=== PATIENT | male | born 1995 | race Two or more races ===

== ENCOUNTER 2021-01-29 07:23 | Emergency (ER) | payer SELFPAY ==
[~2021-01-29] VITALS: Ht 180.3 cm; Wt 62.0 kg
[~2021-01-29 07:23] MED LIST: OMEP-110 PO; ONDA4TAB13 PO
[2021-01-29] MEDS ORDERED: PROCHLORPERAZINE 5 MG/ML, 2ML IVPush ONE (07:30)
[2021-01-29] MEDS ORDERED: SODIUM CHLORIDE FLUSH 10ML SYR IVF ONE (07:30)
[2021-01-29] MEDS ORDERED: SODIUM CHLORIDE 0.9% 1,000ML IVBOLUS ONE (07:30)
[2021-01-29] MEDS ORDERED: PROCHLORPERAZINE 5 MG/ML, 2ML ONE (07:38)
[2021-01-29 07:49] LABS: BASOPHILS % (AUTO) 1 % (0-1); EOSINOPHILS % (AUTO) 1 % (1-7); LYMPHOCYTES % (AUTO) 17 % (22-44); MEAN CORPUSCULAR HEMOGLOBIN 29.4 pg (27.5-34.5); MEAN PLATELET VOLUME 8.1 fL (7.4-10.4); MONOCYTES % (AUTO) 5 % (2-9); NEUTROPHILS % (AUTO) 77 % (42-75); PLATELET COUNT 233 x10^3/uL (130-400); RED BLOOD COUNT 5.41 x10^6/uL (4.38-5.82); RED CELL DISTRIBUTION WIDTH 12.4 % (9.4-14.8)
[2021-01-29 07:50] LABS: MD NO
[2021-01-29 07:58] LABS: ALANINE AMINOTRANSFERASE 37 U/L (12-78); ALBUMIN 4.5 g/dL (3.4-5.0); ANION GAP 9 mmol/L (5-15); CALCIUM 8.6 mg/dL (8.5-10.1); CHLORIDE 108 mmol/L (98-107); CREATININE 0.82 mg/dL (0.7-1.3)
[2021-01-29 08:00] LABS: ALKALINE PHOSPHATASE 105 U/L (45-117); BILIRUBIN,TOTAL 1.9 mg/dL (0.2-1.0); TOTAL PROTEIN 7.8 g/dL (6.4-8.2)
[2021-01-29 08:16] VITALS: BP 110/61
--- NOTE | 2021-01-29 08:16 | NUR ---
PT STATES SINCE MEDICATED NO PAIN AND RESTING WITH EYES CLOSED WHILE FLUIDS INFUSE.
== END 2021-01-29 09:03 | disposition home or self-care (01) ==
LOC: ED 08:50
DX: R10.33 Periumbilical pain (principal); R11.2 Nausea with vomiting, unspecified
CPT/HCPCS: 36415; 80053; 83690; 85025; 96361; 96374; 99283; J0780; J7030

== ENCOUNTER 2021-02-02 07:28 | Emergency (ER) | payer SELFPAY ==
--- NOTE | 2021-02-02 08:02 | NUR ---
NIL X1
--- NOTE | 2021-02-02 08:07 | NUR ---
NIL X 2
--- NOTE | 2021-02-02 08:29 | NUR ---
NIL X3V 3. REMOVED FROM SYSTEM PER PROTOCOL
== END 2021-02-02 08:31 | disposition left against medical advice (07) ==
LOC: ED 08:25
DX: R11.2 Nausea with vomiting, unspecified (principal); Z53.21 Procedure and treatment not carried out due to patient leaving prior to being seen by health care provider

== ENCOUNTER 2021-02-05 05:27 | Emergency (ER) | payer SELFPAY ==
[~2021-02-05] VITALS: Ht 180.3 cm; Wt 60.0 kg
[2021-02-05] MEDS ORDERED: ONDANSETRON 2MG/ML, 2ML ONE (05:59)
[2021-02-05] MEDS ORDERED: MAALOX/HYOSCYAMINE/LIDOCAINE 45 ML BTL ONE (05:59)
[2021-02-05] MEDS ORDERED: SODIUM CHLORIDE 0.9% 1,000ML IVBOLUS ONE (06:00)
[2021-02-05] MEDS ORDERED: ONDANSETRON 2MG/ML, 2ML IVPush ONE (06:00)
[2021-02-05] MEDS ORDERED: FAMOTIDINE 20 MG/2 ML IVPush ONE (06:00)
[2021-02-05] MEDS ORDERED: MAALOX/HYOSCYAMINE/LIDOCAINE 45 ML BTL PO ONE (06:00)
[2021-02-05] MEDS ORDERED: LORazepam 2 MG/ML, 1ML IVPush ONE (06:00)
[2021-02-05] MEDS ORDERED: FAMOTIDINE 20 MG/2 ML ONE (06:00)
[2021-02-05] MEDS ORDERED: LORazepam 2 MG/ML, 1ML ONE (06:00)
--- NOTE | 2021-02-05 06:10 | NUR ---
PT BIB [facility] C/O SEVERE ABDOMINAL PAIN. PT SHAKING AND SAYS ITS BECAUSE OF THE PAIN. PT WITH A 20G PIV TO RIGHT FOREARM. DOESN'T SHAKE WHEN STAFF NOT IN THE ROOM. MD TO BEDSIDE AND EVALED, AND ORDERS RECEIVED.
--- NOTE | 2021-02-05 06:14 | NUR ---
CHEMICAL RESEARCH TECHNICIAN TO BEDSIDE TO COMPLETE ULTRASOUND OF THE ABDOMEN. FURNITURE POLISHER FOLLOWED AND SADIE BLOOD.
--- NOTE | 2021-02-05 06:32 | NUR ---
PT UP TO COMMODE TO STOOL AND PROVIDE URINE SAMPLE.
[2021-02-05 06:33] LABS: ALANINE AMINOTRANSFERASE 25 U/L (12-78); ALBUMIN 3.9 g/dL (3.4-5.0); ANION GAP 6 mmol/L (5-15); CALCIUM 8.3 mg/dL (8.5-10.1); CHLORIDE 113 mmol/L (98-107); CREATININE 0.67 mg/dL (0.7-1.3)
[2021-02-05 06:35] LABS: ALKALINE PHOSPHATASE 95 U/L (45-117); BILIRUBIN,TOTAL 1.6 mg/dL (0.2-1.0)
--- NOTE | 2021-02-05 06:48 | NUR ---
REPORT TO GAVIOTA HEAD.
--- NOTE | 2021-02-05 06:48 | NUR ---
REPORT RECEIVED FROM MAURICIO HEAD.
[2021-02-05] MEDS ORDERED: PROMETHAZINE 25 MG/ML, 1ML ONE (06:58)
[2021-02-05] MEDS ORDERED: PROMETHAZINE 25 MG/ML, 1ML IM ONE (07:00)
[2021-02-05 07:06] LABS: BASOPHILS % (AUTO) 1 % (0-1); EOSINOPHILS % (AUTO) 0 % (1-7); LYMPHOCYTES % (AUTO) 18 % (22-44); MEAN CORPUSCULAR HEMOGLOBIN 29.2 pg (27.5-34.5); MEAN CORPUSCULAR HGB CONC 33.7 g/dL (33.2-36.2); MEAN PLATELET VOLUME 7.8 fL (7.4-10.4); MONOCYTES % (AUTO) 6 % (2-9); NEUTROPHILS % (AUTO) 75 % (42-75); PLATELET COUNT 226 x10^3/uL (130-400); RED BLOOD COUNT 5.15 x10^6/uL (4.38-5.82); RED CELL DISTRIBUTION WIDTH 12.5 % (9.4-14.8)
[2021-02-05 07:11] LABS: MD NO
[2021-02-05 07:11] LABS: MICROSCOPIC INDICATED
[2021-02-05 08:02] VITALS: BP 105/46
--- NOTE | 2021-02-05 08:03 | NUR ---
Patient given discharge instructions and prescription and they have confirmed that they understand the instructions. Patient stable and ambulatory with steady gait from ED to private vehicle.
== END 2021-02-05 08:03 | disposition home or self-care (01) ==
LOC: ED 05:32
DX: K29.50 Unspecified chronic gastritis without bleeding (principal); R10.13 Epigastric pain; R11.2 Nausea with vomiting, unspecified
CPT/HCPCS: 36415; 76700; 80053; 81001; 83690; 85025; 96361; 96372; 96374; 96375; 99285; J2060; J2405; J2550; J7030

== ENCOUNTER 2021-02-08 06:48 | Emergency (ER) | payer SELFPAY ==
[~2021-02-08] VITALS: Ht 180.3 cm; Wt 60.0 kg
[2021-02-08 06:50] VITALS: BP 117/87
[2021-02-08] MEDS ORDERED: ONDANSETRON 2MG/ML, 2ML ONE (07:28)
[2021-02-08] MEDS ORDERED: HALOPERIDOL 5 MG/ML ONE (07:28)
[2021-02-08] MEDS ORDERED: SODIUM CHLORIDE 0.9% 1,000ML IVBOLUS ONE ×2 (07:30→09:30)
[2021-02-08] MEDS ORDERED: HALOPERIDOL 5 MG/ML IM PRN (07:30)
[2021-02-08] MEDS ORDERED: ONDANSETRON 2MG/ML, 2ML IVPush ONE (07:30)
[2021-02-08 07:37] LABS: BASOPHILS % (AUTO) 1 % (0-1); EOSINOPHILS % (AUTO) 1 % (1-7); LYMPHOCYTES % (AUTO) 19 % (22-44); MEAN CORPUSCULAR HEMOGLOBIN 29.7 pg (27.5-34.5); MEAN CORPUSCULAR HGB CONC 34.2 g/dL (33.2-36.2); MEAN PLATELET VOLUME 8.1 fL (7.4-10.4); MONOCYTES % (AUTO) 5 % (2-9); NEUTROPHILS % (AUTO) 75 % (42-75); PLATELET COUNT 254 x10^3/uL (130-400); RED BLOOD COUNT 5.61 x10^6/uL (4.38-5.82); RED CELL DISTRIBUTION WIDTH 12.6 % (9.4-14.8)
--- NOTE | 2021-02-08 07:49 | NUR ---
PT SHAKING LEGS AND ABDOMEN AND TENSING UP, YELLING OUT IN PAIN. PT HAS EMESIS BAG OF BOUT 100CC WATERY EMESIS. PT MEDICATED FOR AGITATION AND NAUSEA. PT VITALS STABLE. WILL CONTINUE TO MONITOR.
[2021-02-08 07:50] LABS: ALANINE AMINOTRANSFERASE 31 U/L (12-78); ALBUMIN 4.8 g/dL (3.4-5.0); ANION GAP 9 mmol/L (5-15); CALCIUM 9.5 mg/dL (8.5-10.1); CHLORIDE 109 mmol/L (98-107); CREATININE 0.98 mg/dL (0.7-1.3)
[2021-02-08 07:52] LABS: ALKALINE PHOSPHATASE 114 U/L (45-117); BILIRUBIN,TOTAL 1.1 mg/dL (0.2-1.0); TOTAL PROTEIN 8.2 g/dL (6.4-8.2)
--- NOTE | 2021-02-08 08:21 | NUR ---
PT RESTING IN BED CALMLY AFTER MISSILE TRACKING TECHNICIAN. PT REMOVING MONITORS. ASKED PT WHY HE IS DOING THIS, PT STATED, "I DON'T WANT IT ON". PT INFORMED HE WILL BE GOING TO CT SHORTLY. PT CONFIRMED.
--- NOTE | 2021-02-08 08:28 | NUR ---
PT GOING TO CT
--- NOTE | 2021-02-08 08:40 | NUR ---
PT UP AMBULATING IN HALLWAY STEADILY. PT RESTING CALMLY IN BED AT THIS TIME. AWAITING CTA READ.
[2021-02-08] MEDS ORDERED: OMNIPAQUE 350 MG/ML, 100ML BOTTLE ONE (08:52)
--- NOTE | 2021-02-08 09:30 | NUR ---
TASK RN NOTE: PT AMBULATES WELL TO BATHROOM AND BACK TO BED. NAD NOTED AT THIS TIME. UA LABELLED AND SENT TO LAB. MONITORING DEVICES REATTACHED.
[2021-02-08 09:53] LABS: MICROSCOPIC AUTO
== END 2021-02-08 10:16 | disposition home or self-care (01) ==
LOC: ED 07:08
DX: R10.84 Generalized abdominal pain (principal); R11.2 Nausea with vomiting, unspecified
CPT/HCPCS: 36415; 74174; 80053; 81001; 83605; 83690; 85025; 96361; 96372; 96374; 99285; J1630; J2405; J7030; Q9967

== ENCOUNTER 2021-02-12 16:02 | Emergency (ER) | payer SELFPAY ==
[~2021-02-12] VITALS: Ht 172.7 cm; Wt 66.5 kg
[2021-02-12 16:29] VITALS: BP 114/72
[2021-02-12] MEDS ORDERED: SODIUM CHLORIDE 0.9% 1,000ML IVBOLUS ONE (17:00)
[2021-02-12] MEDS ORDERED: FAMOTIDINE 20 MG/2 ML IVPush ONE (17:00)
[2021-02-12] MEDS ORDERED: ONDANSETRON 2MG/ML, 2ML IVPush ONE (17:00)
[2021-02-12] MEDS ORDERED: SODIUM CHLORIDE FLUSH 10ML SYR IVF ONE (17:00)
--- NOTE | 2021-02-12 17:37 | NUR ---
Z from lab called patient 5 seperate times to attempt lab draw. No answer from patient.
--- NOTE | 2021-02-12 18:43 | NUR ---
PATIENT LEFT WITHOUT BEING SEEN BY PROVIDER.
== END 2021-02-12 18:42 | disposition left against medical advice (07) ==
LOC: ED 16:45
DX: R11.10 Vomiting, unspecified (principal)
CPT/HCPCS: 99281

== ENCOUNTER 2021-02-13 06:06 | Emergency (ER) | payer SELFPAY ==
[~2021-02-13] VITALS: Ht 180.3 cm; Wt 59.1 kg
[2021-02-13 06:07] VITALS: BP 114/75
--- NOTE | 2021-02-13 06:12 | NUR ---
bib ems for n/v and ab pain for a week or so and worse the last 3 hours. 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 erp at bedside, pt on coninuous pulse ox and bp cuff
[2021-02-13] MEDS ORDERED: HALOPERIDOL 5 MG/ML ONE (06:25)
[2021-02-13] MEDS ORDERED: HALOPERIDOL 5 MG/ML IM ONE (06:30)
--- NOTE | 2021-02-13 06:57 | NUR ---
report given to jose guadalupe obrien
== END 2021-02-13 07:39 | disposition home or self-care (01) ==
LOC: ED 07:33
DX: G89.29 Other chronic pain (principal); R10.84 Generalized abdominal pain; R11.2 Nausea with vomiting, unspecified
CPT/HCPCS: 96372; 99283; J1630

== ENCOUNTER 2021-04-29 04:50 | Emergency (ER) | payer SELFPAY ==
[~2021-04-29] VITALS: Ht 176.5 cm; Wt 67.2 kg
--- NOTE | 2021-04-29 05:21 | NUR ---
pt endorses periumbilical/epigastric abd pain, denies any aggravating factors. States hx of same, was dx w/ cannabis induced hyperemesis and was told pain was related to cannabanoid use. States he has not had any cannabis in x2 months and has made diet modifications. Pt endorses inability to hold anything down, frequent vomiting episodes, last vomiting episode 3am. Also endorses loose stools. Denies any complaints. No urgency, burning, frequency. Pt denies any etoh/illicit drug use. Pt denies any referred chest pain, sob, flank pain, upper back pain. Pt speaking in full sentences, cooperative with exam, alert and oriented x4 able to make needs known.
[2021-04-29] MEDS ORDERED: MORPHINE SULFATE 4 MG/ML, 1ML ONE ×2 (05:24→07:59)
[2021-04-29] MEDS ORDERED: ONDANSETRON 2MG/ML, 2ML ONE (05:24)
[2021-04-29] MEDS ORDERED: SODIUM CHLORIDE 0.9% 1,000 ML IV ONE (05:30)
[2021-04-29] MEDS ORDERED: MORPHINE SULFATE 4 MG/ML, 1ML IVPush PRN (05:30)
[2021-04-29] MEDS ORDERED: ONDANSETRON 2MG/ML, 2ML IVPush ONE (05:30)
[2021-04-29] MEDS ORDERED: SODIUM CHLORIDE 0.9% 1,000ML IVBOLUS ONE (05:30)
[2021-04-29] MEDS ORDERED: SODIUM CHLORIDE FLUSH 10ML SYR IVF ONE (05:30)
--- NOTE | 2021-04-29 05:42 | NUR ---
US at bedside, pt attempted to provide urine specimen, unable to do so at this time. IVF running, will continue to encourage pt to void.
[2021-04-29 05:50] LABS: BASOPHILS % (AUTO) 0 % (0-1); EOSINOPHILS % (AUTO) 1 % (1-7); LYMPHOCYTES % (AUTO) 23 % (22-44); MEAN CORPUSCULAR HEMOGLOBIN 29.5 pg (27.5-34.5); MEAN CORPUSCULAR HGB CONC 34.5 g/dL (33.2-36.2); MEAN PLATELET VOLUME 8.2 fL (7.4-10.4); MONOCYTES % (AUTO) 7 % (2-9); NEUTROPHILS % (AUTO) 69 % (42-75); PLATELET COUNT 227 x10^3/uL (130-400); RED BLOOD COUNT 5.58 x10^6/uL (4.38-5.82); RED CELL DISTRIBUTION WIDTH 12.8 % (9.4-14.8)
[2021-04-29 05:57] LABS: ALANINE AMINOTRANSFERASE 29 U/L (12-78); ALBUMIN 4.4 g/dL (3.4-5.0); ANION GAP 6 mmol/L (5-15); CALCIUM 8.9 mg/dL (8.5-10.1); CHLORIDE 109 mmol/L (98-107); CREATININE 0.89 mg/dL (0.7-1.3)
[2021-04-29 05:59] LABS: ALKALINE PHOSPHATASE 103 U/L (45-117); BILIRUBIN,TOTAL 2.6 mg/dL (0.2-1.0); TOTAL PROTEIN 7.8 g/dL (6.4-8.2)
--- NOTE | 2021-04-29 06:57 | NUR ---
Report given to SONIDO Jay no further questions.
[2021-04-29 07:00] LABS: MICROSCOPIC INDICATED
--- NOTE | 2021-04-29 07:02 | NUR ---
BEDSIDE REPORT TAKEN FROM HEIDI HEAD
[2021-04-29 07:16] VITALS: BP 104/60
--- NOTE | 2021-04-29 07:16 | NUR ---
pt resting in bed, resps even and unlabored, vss, nadn. PO challenge tolerated well.
[2021-04-29] MEDS ORDERED: MAALOX/HYOSCYAMINE/LIDOCAINE 45 ML BTL ONE (07:59)
[2021-04-29] MEDS ORDERED: MAALOX/HYOSCYAMINE/LIDOCAINE 45 ML BTL PO ONE (08:00)
--- NOTE | 2021-04-29 08:30 | NUR ---
pt educated on discharge, prescription for Zofran, follow-up, and return criteria, verbalized understanding. pt a&o, resps even and unlabored, vss, nadn. ambulatory to dc with steady gait.
== END 2021-04-29 08:52 | disposition home or self-care (01) ==
LOC: ED 06:09
DX: R11.2 Nausea with vomiting, unspecified (principal); E86.0 Dehydration; R10.13 Epigastric pain; R19.7 Diarrhea, unspecified
CPT/HCPCS: 36415; 76700; 80053; 81001; 83690; 85025; 96361; 96374; 96375; 99284; J2270; J2405; J7030

== ENCOUNTER 2021-04-30 06:49 | Emergency (ER) | payer SELFPAY ==
[~2021-04-30] VITALS: Ht 177.8 cm; Wt 65.0 kg
--- NOTE | 2021-04-30 07:06 | NUR ---
Very dramatic presentation at triage, moaning and thrashing about pushing himself in hospital wc. Dry heaving at triage, hyperventilating. Difficult to obtain accurate vitals.
--- NOTE | 2021-04-30 07:17 | NUR ---
DR ALVAREZ AT BEDSIDE, PT ASSESSMENT, POC DISCUSSED AND QUESTIONS ANSWERED. BP AND SP02 MONITORS PLACED, PIV EST AND LABS DRAWN. PT SEEN 04/29 FOR SAME, STATES HE ATE FINE LAST NIGHT BUT WOKE THIS AM AT 0600 WITH ABD PAIN, STATES HE FELT A "POP". CALL LIGHT W/I REACH VSS.
[2021-04-30] MEDS ORDERED: ONDANSETRON 2MG/ML, 2ML ONE (07:24)
[2021-04-30] MEDS ORDERED: HYDROmorphone 1 MG/ML, 1ML INJ ONE (07:24)
[2021-04-30] MEDS ORDERED: SODIUM CHLORIDE 0.9% 1,000 ML IV ONE (07:30)
[2021-04-30] MEDS ORDERED: ONDANSETRON 2MG/ML, 2ML IVPush ONE (07:30)
[2021-04-30] MEDS ORDERED: SODIUM CHLORIDE 0.9% 1,000ML IVBOLUS ONE (07:30)
[2021-04-30] MEDS ORDERED: SODIUM CHLORIDE FLUSH 10ML SYR IVF ONE (07:30)
[2021-04-30] MEDS ORDERED: HYDROmorphone 1 MG/ML, 1ML INJ IV ONE (07:30)
--- NOTE | 2021-04-30 07:40 | NUR ---
PT MED NOTED. CALL LIGHT W/I REACH. PT AWARE OF NEED TO PROVIDE URINE SAMPLE AND URINAL AT BEDSIDE.
[2021-04-30 07:57] LABS: BASOPHILS % (AUTO) 0 % (0-1); EOSINOPHILS % (AUTO) 1 % (1-7); LYMPHOCYTES % (AUTO) 29 % (22-44); MEAN CORPUSCULAR HEMOGLOBIN 29.6 pg (27.5-34.5); MEAN CORPUSCULAR HGB CONC 34.5 g/dL (33.2-36.2); MEAN PLATELET VOLUME 8.5 fL (7.4-10.4); MONOCYTES % (AUTO) 7 % (2-9); NEUTROPHILS % (AUTO) 63 % (42-75); PLATELET COUNT 264 x10^3/uL (130-400); RED BLOOD COUNT 5.65 x10^6/uL (4.38-5.82); RED CELL DISTRIBUTION WIDTH 12.7 % (9.4-14.8)
[2021-04-30 08:09] LABS: ALANINE AMINOTRANSFERASE 30 U/L (12-78); ALBUMIN 4.6 g/dL (3.4-5.0); ANION GAP 8 mmol/L (5-15); CHLORIDE 109 mmol/L (98-107); CREATININE 0.94 mg/dL (0.7-1.3)
[2021-04-30 08:11] LABS: ALKALINE PHOSPHATASE 105 U/L (45-117); BILIRUBIN,TOTAL 3.3 mg/dL (0.2-1.0); CALCIUM 9.2 mg/dL (8.5-10.1)
[2021-04-30] MEDS ORDERED: OMNIPAQUE 350 MG/ML, 100ML BOTTLE ONE (08:34)
--- NOTE | 2021-04-30 08:39 | NUR ---
VSS, PAIN NOW 5/10 AND PT APPEARS MUCH MORE RELAXED, WATCHING TV AND TEXTING ON PHONE. IVF BOLUS COMPLETED AND NS INFUSING AT 250ML/HR. URINE COLLECTED AND SENT TO LAB. CALL LIGHT W/I REACH
[2021-04-30 08:58] LABS: AMPHETAMINE SCREEN, URINE Negative (Negative); BARBITURATE SCREEN, URINE Negative (Negative); BENZODIAZEPINE SCREEN, URINE Negative (Negative); CANNABINOID SCREEN, URINE Positive (Negative); COCAINE SCREEN, URINE Negative (Negative); METHADONE SCREEN, URINE Negative (Negative); OPIATE SCREEN, URINE Positive (Negative)
[2021-04-30 08:59] LABS: MICROSCOPIC INDICATED
[2021-04-30 09:30] VITALS: BP 100/53
[2021-04-30] MEDS ORDERED: HALOPERIDOL 5 MG/ML IV ONE (09:30)
[2021-04-30] MEDS ORDERED: HALOPERIDOL 5 MG/ML ONE (09:34)
--- NOTE | 2021-04-30 10:49 | NUR ---
PT LEFT WITHOUT DC INSTRUCTIONS. IV WAS DC'D BY FINANCIAL ANALYST INTERN STUDENT
== END 2021-04-30 10:52 | disposition home or self-care (01) ==
LOC: ED 08:08
DX: R10.84 Generalized abdominal pain (principal); R11.2 Nausea with vomiting, unspecified; R00.0 Tachycardia, unspecified
CPT/HCPCS: 36415; 71045; 74177; 80053; 80307; 81001; 83605; 83690; 85025; 96361; 96374; 96375; 99285; J1170; J1630; J2405; J7030; Q9967

== ENCOUNTER 2021-06-21 05:30 | Emergency (ER) | payer OTHER ==
[~2021-06-21] VITALS: Ht 177.8 cm; Wt 68.4 kg
[2021-06-21 05:33] VITALS: BP 116/64
--- NOTE | 2021-06-21 07:54 | NUR ---
NA X 1
--- NOTE | 2021-06-21 08:01 | NUR ---
ONEL RN: CALLED FROM LOBBY, NO ANSWER
--- NOTE | 2021-06-21 08:09 | NUR ---
ONEL RN: CALLED FROM LOBBY, NO ANSWER
== END 2021-06-21 08:10 ==
LOC: ED 06:09
DX: M54.9 Dorsalgia, unspecified (principal); Z53.21 Procedure and treatment not carried out due to patient leaving prior to being seen by health care provider

== ENCOUNTER 2021-06-22 06:26 | Emergency (ER) | payer OTHER ==
[~2021-06-22] VITALS: Ht 177.8 cm; Wt 67.7 kg
--- NOTE | 2021-06-22 06:47 | NUR ---
PT C/O OF PERIUMBILICAL ABD PAIN, N/V/D FOR LAST 5 DAYS PT REPORTS THIS HAS HAPPENED A FEW MONTHS AGO ERMD AT BEDSIDE FOR EVAL ATTACHED TO MONITORS. VSS. NADN. BED IN LOW, RAILS ENGAGED, CALL LIGHT ON LAP.
--- NOTE | 2021-06-22 06:53 | NUR ---
ASSUMED CARE FROM SONIDO ELLIS. PT RESTING IN [facility], MONITORING IN PLACE, JOSE AT THIS TIME, PER PT NO NEEDS, WARM BLANKET PROVIDED, [id number].
[2021-06-22] MEDS ORDERED: SODIUM CHLORIDE FLUSH 10ML SYR IVF ONE (07:00)
[2021-06-22] MEDS ORDERED: SODIUM CHLORIDE 0.9% 1,000ML IVBOLUS ONE (07:00)
[2021-06-22] MEDS ORDERED: ONDANSETRON 2MG/ML, 2ML IVPush ONE (07:00)
[2021-06-22] MEDS ORDERED: MORPHINE SULFATE 4 MG/ML, 1ML IVPush PRN (07:00)
[2021-06-22] MEDS ORDERED: ONDANSETRON 2MG/ML, 2ML ONE (07:01)
[2021-06-22] MEDS ORDERED: MORPHINE SULFATE 4 MG/ML, 1ML ONE (07:01)
[2021-06-22 07:22] LABS: BASOPHILS % (AUTO) 1 % (0-1); EOSINOPHILS % (AUTO) 1 % (1-7); LYMPHOCYTES % (AUTO) 27 % (22-44); MEAN CORPUSCULAR HEMOGLOBIN 29.2 pg (27.5-34.5); MEAN PLATELET VOLUME 7.6 fL (7.4-10.4); MONOCYTES % (AUTO) 7 % (2-9); NEUTROPHILS % (AUTO) 65 % (42-75); PLATELET COUNT 229 x10^3/uL (130-400); RED BLOOD COUNT 5.38 x10^6/uL (4.38-5.82); RED CELL DISTRIBUTION WIDTH 12.7 % (9.4-14.8)
[2021-06-22 07:32] LABS: ALANINE AMINOTRANSFERASE 29 U/L (12-78); ALBUMIN 4.1 g/dL (3.4-5.0); ANION GAP 7 mmol/L (5-15); CALCIUM 8.7 mg/dL (8.5-10.1); CHLORIDE 109 mmol/L (98-107); CREATININE 0.71 mg/dL (0.7-1.3)
[2021-06-22 07:34] LABS: ALKALINE PHOSPHATASE 97 U/L (45-117); BILIRUBIN,TOTAL 2.5 mg/dL (0.2-1.0); TOTAL PROTEIN 7.6 g/dL (6.4-8.2)
[2021-06-22] MEDS ORDERED: OMNIPAQUE 350 MG/ML, 100ML BOTTLE ONE (09:15)
[2021-06-22 09:54] VITALS: BP 105/61
--- NOTE | 2021-06-22 09:55 | NUR ---
IV DC'ED. PT EDUCATED ON CARE GOING FORWARD AND HOME CARE.
== END 2021-06-22 09:56 | disposition home or self-care (01) ==
LOC: ED 07:36
DX: R10.33 Periumbilical pain (principal); R11.2 Nausea with vomiting, unspecified; R19.7 Diarrhea, unspecified
CPT/HCPCS: 36415; 74177; 80053; 83605; 83690; 85025; 96361; 96374; 96375; 99285; J2270; J2405; J7030; Q9967

== ENCOUNTER 2021-06-24 04:54 | Emergency (ER) | payer SELFPAY ==
--- NOTE | 2021-06-24 05:05 | NUR ---
NIL X 1 WHEN CALLED FOR TRIAGE.
--- NOTE | 2021-06-24 05:16 | NUR ---
NIL X 2 WHEN CALLED FOR TRIAGE. PER SCREENER STAFF PT. LEFT ED.
== END 2021-06-24 05:18 | disposition left against medical advice (07) ==
LOC: ED 05:00
DX: R10.9 Unspecified abdominal pain (principal); Z53.21 Procedure and treatment not carried out due to patient leaving prior to being seen by health care provider

== ENCOUNTER 2021-06-25 05:07 | Emergency (ER) | payer OTHER ==
[~2021-06-25] VITALS: Ht 177.8 cm; Wt 68.0 kg
[2021-06-25 05:14] VITALS: BP 119/98
--- NOTE | 2021-06-25 08:11 | NUR ---
LEARNING SPECIALIST: [id number]
--- NOTE | 2021-06-25 08:20 | NUR ---
TABLE ATTENDANT: [id number]
--- NOTE | 2021-06-25 09:15 | NUR ---
No answer when called for room from rex x3
== END 2021-06-25 09:17 | disposition left against medical advice (07) ==
LOC: ED 05:17
DX: R11.10 Vomiting, unspecified (principal); R10.9 Unspecified abdominal pain; Z53.21 Procedure and treatment not carried out due to patient leaving prior to being seen by health care provider

== ENCOUNTER 2021-06-28 06:31 | Emergency (ER) | payer OTHER ==
[~2021-06-28] VITALS: Ht 177.8 cm; Wt 67.0 kg
[2021-06-28 06:39] VITALS: BP 123/84
--- NOTE | 2021-06-28 08:11 | NUR ---
NA X 1
--- NOTE | 2021-06-28 10:21 | NUR ---
NA X 2
--- NOTE | 2021-06-28 11:09 | NUR ---
NA X3
== END 2021-06-28 11:12 | disposition left against medical advice (07) ==
LOC: ED 07:22
DX: R10.9 Unspecified abdominal pain (principal); Z53.21 Procedure and treatment not carried out due to patient leaving prior to being seen by health care provider